=== PATIENT | female | born 1965 | race Caucasian/White ===

== ENCOUNTER → 2018-06-27 14:30 | Outpatient (CLI) | payer OTHER, SELFPAY ==
--- NOTE | 2018-06-28 | EMB_PTH ---
PATIENT: ROSANNA GRACE LOC: [facility] U#:[id number] AGE/SX: 60/F ROOM: RE06/27/[address]: Dr. Emanuel Meraz MD : [id number] BED: DIS: SPEC #: [id number] RECD: 06/28/18 13:10 STATUS: ANTONELLA JOLEEN #: [id number] PATRICIA: 06/28/18 00:[address]: Emanuel Mreaz DEPT: SURGICAL PATHOLOGY RECD BY: David Salter Tissues: Endometrium, NOS Procedures: Surgery Specimen Level IV HEADER OPERATION: Endometrial biopsy PRE-OP DIAGNOSIS: N93.9 TISSUE SUBMITTED: Endometrial biopsy MICROSCOPIC DIAGNOSIS Endometrial biopsy: Secretory endometrium. RUTHIE:ki 06/29/18 MICROSCOPIC DESCRIPTION Slides are reviewed. GROSS DESCRIPTION Received in fixative is one container labeled with the patient's name and designated EM biopsy. The specimen consists of multiple irregular fragments of gutierrez soft tissue that in aggregate measure 3 x 2.5 x 0.3 cm. The specimen is totally submitted in one cassette. / RUTHIE:ki 06/28/18 TC:4 CPT: 28295
== END ==
PROVIDERS: Visit Provider Obstetrics & Gynecology
DX: N85.8 Other specified noninflammatory disorders of uterus (principal)
CPT/HCPCS: 88305